=== PATIENT | male | born 1970 | race Caucasian/White ===

== ENCOUNTER → 2017-04-21 | Outpatient (CLI) | payer BC ==
--- NOTE | 2017-04-21 12:05 | PN ---
PROGRESS NOTE HISTORY: A 46-year-old male patient diagnosed having severe symptomatic obstructive sleep apnea with an AHI of 61. Currently on CPAP pressure of 10 cm of water. The patient is coming in for annual check. He is very compliant with CPAP therapy. He is wearing it every night without any interruption. He feels he needs the treatment, knowing that he feels much better while on treatment and he reports improvement in sleep quality and much more alertness and awakeness during the day. Based on the 30-day compliance data, the patient has been averaging 8.2 hours of CPAP use per night. He is using AirFit P 10 medium-size nose pillow. He has an AHI of less than 5 while on treatment. His leak factor is only at 6 L/minute. His weight has been essentially stable, he used to weigh 259 and he has lost approximately 6 pounds and is currently down to 253. No chills, no fever, no chest pain. No facial irritation or nose irritation. No aerophagia. SUBJECTIVE: BP is 128/78, pulse is 69, respirations 16, temperature 97.7, saturation 96% on room air. Weight is 253, height is 5 feet 8 inches, BMI 38.4. GENERAL APPEARANCE: Calm, comfortable. HEAD: Atraumatic, normocephalic. NECK: Short, Mallampati class IV. There is no goiter or neck masses. LUNGS: Clear to auscultation. HEART: Heart sounds are regular rate and rhythm. Normal S1, S2. No S3. No murmurs. ABDOMEN: Soft, nontender. No organomegaly. EXTREMITIES: No edema, cyanosis or clubbing. SKIN: There are no lesions, ulcerations, or warmth. ASSESSMENT: 1. Symptomatic severe obstructive sleep apnea. Apnea-hypopnea index is 61. The patient is currently on CPAP pressure of 10 and continues to be successfully treated. 2. Hypersomnia, recovered. 3. Obesity, body mass index of 38.4, with interval few pounds weight loss. PLAN: 1. No changes will be done on the CPAP machine. Continue CPAP with a pressure of 10 cm of water. 2. Renew supplies. 3. Encourage further weight loss. 4. Compliance data was reviewed. 5. See me back in a year's time or earlier if needed. MMODL / IJN: [id number] /
== END | disposition home or self-care (01) ==
LOC: SLEEP 10:05
PROVIDERS: ATTEND Internal Medicine Critical Care Medicine
DX: G47.33 Obstructive sleep apnea (adult) (pediatric) (principal); E66.9 Obesity, unspecified; Z99.89 Dependence on other enabling machines and devices; Z68.38 Body mass index [BMI] 38.0-38.9, adult

== ENCOUNTER → 2018-05-18 | Outpatient (CLI) | payer BC ==
--- NOTE | 2018-05-18 17:07 | PN ---
PROGRESS NOTE This is an annual check for a 47-year-old male patient diagnosed having a severe obstructive sleep apnea. The patient had an AHI of 61. Patient was treated for a CPAP pressure of 10 cm of water. He is using an AirFit P10 nose mask. On today's evaluation, he is doing great. He is still benefiting from the treatment. His weight is stable and he has gained only 2 pounds over the past 1 year. His compliance data shows the patient is averaging around 8.3 hours of CPAP use per night. Leak factor 5 L/minute. His AHI while on treatment is down to 5.2. His CPAP use for more than 4 hours 100%. His only complaint that the nose pillow itself was somewhat loose and at times is coming off inadvertently and he is exploring other nose masks. For the most part, he is doing well. He is waking up refreshed and alert during the day. No nocturnal chest pain, shortness of breath, chest pain or palpitations. [place] score is down to 1. REVIEW OF SYSTEMS: 12-point review of system was done. Positive findings are mentioned above in history of present illness. PHYSICAL EXAMINATION: BP is 118/83, pulse 80, respirations 16, temperature 97.1, saturation 94% on room air. Weight is 255, height is 5 feet 8 inches. GENERAL APPEARANCE: Calm, comfortable, obese. Head is atraumatic, normocephalic. NECK: Supple. No JVD. No goiter or neck masses. Mallampati class IV. LUNGS: Clear to auscultation. HEART: Sounds regular rate and rhythm. Normal S1, S2. No S3. No murmurs. ABDOMEN: Soft, nontender. No organomegaly. EXTREMITIES: No edema. No cyanosis or clubbing. IMPRESSION: 1. Severe symptomatic obstructive sleep apnea with an AHI of 61. The patient currently on CPAP pressure of 10 cm of water. 2. Hypersomnia, recovered. 3. Obesity with a stable body weight. Current body weight is at 255 with a BMI of 38.7. PLAN: 1. We explored different masks. I was able to fit this patient to a medium-sized Brevida nose pillow which worked very fine for him and he is willing to make the switch to a medium-sized reviewed nose pillow. 2. Encourage weight loss. 3. Increase the CPAP pressure of 11 cm of water knowing that the patient's AHI is just above 5. Would like to bring his AHI less than 5 while on treatment. The patient will see me back in 1 years time in followup. His treatment is successful for now. MMNANCIEL / IJN: [id number] /
== END ==
LOC: SLEEP 14:30
PROVIDERS: ATTEND Internal Medicine Critical Care Medicine
DX: G47.33 Obstructive sleep apnea (adult) (pediatric) (principal); E66.9 Obesity, unspecified; Z99.89 Dependence on other enabling machines and devices

== ENCOUNTER 2018-11-25 15:18 | Emergency (ER) | payer BC ==
[2018-11-25 15:22] VITALS: TEMP 98.4
[2018-11-25] MEDS ORDERED: IPRATROPIUM-ALBUTEROL 3 ML NEB INHALATION STA (15:27)
[2018-11-25] MEDS ORDERED: SODIUM CHLORIDE 0.9% 1,000 ML IV STA ×2 (15:27→17:00)
--- NOTE | 2018-11-25 15:28 | ED ---
SOB HPI - General Chief Complaint: Shortness of Breath Stated Complaint: SOB Time Seen by Provider: 11/25/18 15:23 Source: patient, RN notes reviewed, old records reviewed Mode of arrival: wheelchair Limitations: no limitations - History of Present Illness Initial Comments: This is a 48-year-old male the ER for evaluation today. Patient stated presents for evaluation regarding shortness of breath he does have shortness of breath episodes of dizziness lightheadedness sweating prior to arrival. No recent travel history no sick contacts patient has no medical history takes no medications no recent fever cough or congestion, patient denies drug or alcohol abuse. Symptoms happen twice today whatsoever in the morning and once again or shopping tonight. Patient currently feeling improved. Feels lightheaded and dizzy like he may pass out MD Complaint: shortness of breath, anxiety -: hour(s) Radiation: other (No pain) Severity: moderate (Dizziness lightheadedness shortness of breath) Severity scale (1-10): 3 Consistency: intermittent Improves With: oxygen, rest Worsens With: exertion, movement Associated Symptoms: palpitations, diaphoresis Treatments Prior to Arrival: none - Related Data Home Medications Medication Instructions Recorded Confirmed No Known Home Medications 11/25/18 11/25/18 Allergies Allergy/AdvReac Type Severity Reaction Status Date / Time codeine Allergy Nausea & Verified 11/25/18 15:57 Vomiting Review of Systems ROS Statement: Those systems with pertinent positive or pertinent negative responses have been documented in the HPI. ROS Other: All systems not noted in ROS Statement are negative. Past Medical History Additional Past Medical History / Comment(s): diverticulitis, neck and back hernitated disc History of Any Multi-Drug Resistant Organisms: None Reported Past Surgical History: Bowel Resection Past Psychological History: No Psychological Hx Reported Smoking Status: Never smoker Past Alcohol Use History: Occasional Past Drug Use History: None Reported General Exam Limitations: no limitations General appearance: alert, in no apparent distress Head exam: Present: atraumatic, normocephalic, normal inspection Eye exam: Present: normal appearance, PERRL, EOMI. Absent: scleral icterus, conjunctival injection, periorbital swelling ENT exam: Present: normal exam, mucous membranes moist Neck exam: Present: normal inspection. Absent: tenderness, meningismus, lymphadenopathy Respiratory exam: Present: normal lung sounds bilaterally. Absent: respiratory distress, wheezes, rales, rhonchi, stridor Cardiovascular Exam: Present: regular rate, normal rhythm, normal heart sounds. Absent: systolic murmur, diastolic murmur, rubs, gallop, clicks GI/Abdominal exam: Present: soft, normal bowel sounds. Absent: distended, tenderness, guarding, rebound, rigid Extremities exam: Present: normal inspection, full ROM, normal capillary refill. Absent: tenderness, pedal edema, joint swelling, calf tenderness Back exam: Present: normal inspection Neurological exam: Present: alert, oriented X3, CN II-XII intact Psychiatric exam: Present: normal affect, normal mood Skin exam: Present: warm, dry, intact, normal color. Absent: rash Course Vital Signs 11/25/18 11/25/18 11/25/18 15: 15:43 15:52 Temperature 98.4 F Pulse Rate 60 71 72 Respiratory 18 Rate Blood Pressure 172/104 O2 Sat by Pulse 97 Oximetry 11/25/18 11/25/18 16:00 17:00 Temperature Pulse Rate 66 67 Respiratory 18 18 Rate Blood Pressure 147/84 142/80 O2 Sat by Pulse 98 98 Oximetry - Reevaluation(s) Reevaluation #1: 11/25/18 16:44 Medical records reviewed Reevaluation #2: 11/25/18 19:49 Patient remains asymptomatic throughout ER stay no chest pain or shortness of breath no other complaints. Medical Decision Making - Medical Decision Making 48 male the ER with nonspecific lightheadedness dizziness episode of clamminess, symptoms are already improved resolved now. Troponin negative 2 CT is negative. Patient can be discharged home - Lab Data Result diagrams: 11/25/18 15:45 11/25/18 15:45 Lab Results 11/25/18 11/25/18 11/25/18 Range/Units 15:45 15:45 15:45 WBC 8.5 (3.8-10.6) k/uL RBC 5.27 (4.30-5.90) m/uL Hgb 15.6 (13.0-17.5) gm/dL Hct 45.1 (39.0-53.0) % MCV 85.6 (80.0-100.0) fL MCH 29.6 (25.0-35.0) pg MCHC 34.6 (31.0-37.0) g/dL RDW 15.5 (11.5-15.5) % Plt Count 270 (150-450) k/uL Neutrophils % 65 % Lymphocytes % 25 % Monocytes % 5 % Eosinophils % 3 % Basophils % 1 % Neutrophils # 5.5 (1.3-7.7) k/uL Lymphocytes # 2.1 (1.0-4.8) k/uL Monocytes # 0.5 (0-1.0) k/uL Eosinophils # 0.3 (0-0.7) k/uL Basophils # 0.1 (0-0.2) k/uL PT 10.2 (9.0-12.0) sec INR 0.9 (<1.2) APTT 25.0 (22.0-30.0) sec D-Dimer 0.19 (<0.60) mg/L FEU Sodium 141 (137-145) mmol/L Potassium 4.2 (3.5-5.1) mmol/L Chloride 106 (98-107) mmol/L Carbon Dioxide 26 (22-30) mmol/L Anion Gap 9 mmol/L BUN 15 (9-20) mg/dL Creatinine 0.85 (0.66-1.25) mg/dL Est GFR (CKD-EPI)AfAm >90 (>60 ml/min/1.73 sqM) Est GFR (CKD-EPI)NonAf >90 (>60 ml/min/1.73 sqM) Glucose 95 (74-99) mg/dL Calcium 9.6 (8.4-10.2) mg/dL Magnesium 2.3 (1.6-2.3) mg/dL Total Bilirubin 0.8 (0.2-1.3) mg/dL AST 27 (17-59) U/L ALT 24 (21-72) U/L Alkaline Phosphatase 93 (38-126) U/L Troponin I (0.000-0.034) ng/mL NT-Pro-B Natriuret Pep pg/mL Total Protein 7.6 (6.3-8.2) g/dL Albumin 4.4 (3.5-5.0) g/dL 11/25/18 11/25/18 11/25/18 Range/Units 15:45 15:45 18:50 WBC (3.8-10.6) k/uL RBC (4.30-5.90) m/uL Hgb (13.0-17.5) gm/dL Hct (39.0-53.0) % MCV (80.0-100.0) fL MCH (25.0-35.0) pg MCHC (31.0-37.0) g/dL RDW (11.5-15.5) % Plt Count (150-450) k/uL Neutrophils % % Lymphocytes % % Monocytes % % Eosinophils % % Basophils % % Neutrophils # (1.3-7.7) k/uL Lymphocytes # (1.0-4.8) k/uL Monocytes # (0-1.0) k/uL Eosinophils # (0-0.7) k/uL Basophils # (0-0.2) k/uL PT (9.0-12.0) sec INR (<1.2) APTT (22.0-30.0) sec D-Dimer (<0.60) mg/L FEU Sodium (137-145) mmol/L Potassium (3.5-5.1) mmol/L Chloride (98-107) mmol/L Carbon Dioxide (22-30) mmol/L Anion Gap mmol/L BUN (9-20) mg/dL Creatinine (0.66-1.25) mg/dL Est GFR (CKD-EPI)AfAm (>60 ml/min/1.73 sqM) Est GFR (CKD-EPI)NonAf (>60 ml/min/1.73 sqM) Glucose (74-99) mg/dL Calcium (8.4-10.2) mg/dL Magnesium (1.6-2.3) mg/dL Total Bilirubin (0.2-1.3) mg/dL AST (17-59) U/L ALT (21-72) U/L Alkaline Phosphatase (38-126) U/L Troponin I <0.012 <0.012 (0.000-0.034) ng/mL NT-Pro-B Natriuret Pep 22 pg/mL Total Protein (6.3-8.2) g/dL Albumin (3.5-5.0) g/dL - EKG Data -: EKG Interpreted by Me (EKG shows sinus rhythm rate of 60, NJ 140, QRS 02, QTc 388) - Radiology Data Radiology results: report reviewed (CTA chest is negative for acute disease), image reviewed Disposition Clinical Impression: Dizziness, Lightheadedness Disposition: HOME SELF-CARE Condition: Good Instructions (If sedation given, give patient instructions): Near Syncope (ED), Lightheadedness (ED), Dizziness (ED) Is patient prescribed a controlled substance at d/c from ED?: No Referrals: Anish Archuleta DO [Primary Care Provider] - 1-2 days
[2018-11-25 15:57] LABS: Basophils # (A) 0.1 k/uL (0-0.2); Basophils % (A) 1 %; Eosinophils # (A) 0.3 k/uL (0-0.7); Eosinophils % (A) 3 %; HCT 45.1 % (39.0-53.0); HGB 15.6 gm/dL (13.0-17.5); Lymphocytes # (A) 2.1 k/uL (1.0-4.8); Lymphocytes % (A) 25 %; MCH 29.6 pg (25.0-35.0); MCHC 34.6 g/dL (31.0-37.0); MCV 85.6 fL (80.0-100.0); Monocytes # (A) 0.5 k/uL (0-1.0); Monocytes % (A) 5 %; Neutrophils # (A) 5.5 k/uL (1.3-7.7); Neutrophils % (A) 65 %; Platelet Count 270 k/uL (150-450); RBC 5.27 m/uL (4.30-5.90); RDW 15.5 % (11.5-15.5); WBC 8.5 k/uL (3.8-10.6)
[2018-11-25 16:10] LABS: ALT 24 U/L (21-72); AST 27 U/L (17-59); African American GFR (CKD) >90 (>60 ml/min/1.73 sqM); Albumin 4.4 g/dL (3.5-5.0); Alkaline Phosphatase 93 U/L (38-126); Anion Gap 9 mmol/L; Blood Urea Nitrogen 15 mg/dL (9-20); Calcium 9.6 mg/dL (8.4-10.2); Carbon Dioxide 26 mmol/L (22-30); Chloride 106 mmol/L (98-107); Glucose 95 mg/dL (74-99); Magnesium 2.3 mg/dL (1.6-2.3); Potassium 4.2 mmol/L (3.5-5.1); Sodium 141 mmol/L (137-145); Total Bilirubin 0.8 mg/dL (0.2-1.3); Total Protein 7.6 g/dL (6.3-8.2)
[2018-11-25 16:11] LABS: D-Dimer 0.19 mg/L FEU (<0.60); INR 0.9 (<1.2); Prothrombin Time 10.2 sec (9.0-12.0)
--- NOTE | 2018-11-25 16:55 | XR ---
EXAMINATION TYPE: XR chest 2V DATE OF EXAM: 11/25/2018 COMPARISON: NONE HISTORY: Short of breath TECHNIQUE: Frontal and lateral views of the chest are obtained. FINDINGS: Heart and mediastinum are normal. Lungs are clear of infiltrate. There are chest leads. Co stophrenic angles are clear. There is spurring in the thoracic spine. IMPRESSION: No active cardiopulmonary disease.
--- NOTE | 2018-11-25 17:33 | CT ---
EXAMINATION TYPE: CT angio chest DATE OF EXAM: 11/25/2018 5:20 PM COMPARISON: None HISTORY: SOB, dizziness and near syncope CT DLP: 604.9 mGycm Automated exposure control for dose reduction was used. CONTRAST: CTA scan of the thorax is performed with IV Contrast, patient injected with 80 mL of Isovue 370, pulm onary embolism protocol. . There are 3-D post processed images. FINDINGS: The lungs are clear of infiltrate. There is no evidence of a pulmonary mass. There is no pleural effu esau. There is no mediastinal adenopathy. There are no hilar masses. Heart size is fairly normal. The re is no pericardial effusion. I see no filling defects in the pulmonary arteries. Thoracic aorta is intact without evidence of aneurysm or dissection. There is some spurring in the th oracic spine. The ribs appear intact. IMPRESSION: NO EVIDENCE OF PULMONARY EMBOLISM. NEGATIVE EXAM.
[2018-11-25 19:52] VITALS: BP 136/92; PULSE 60; RESP 20
== END 2018-11-25 19:55 | disposition home or self-care (01) ==
LOC: EC 15:18
DX: R42 Dizziness and giddiness (principal); R23.1 Pallor; R06.02 Shortness of breath; F41.9 Anxiety disorder, unspecified; R61 Generalized hyperhidrosis; R00.2 Palpitations; Z88.5 Allergy status to narcotic agent
CPT/HCPCS: 36415; 94640; 93005; 85379; 83880; 80053; 83735; 84484; 85025; 85610; 85730; 71046; 71275; 99285; 96360; 96361 ×3; Q9967

== ENCOUNTER → 2019-06-21 | Outpatient (CLI) | payer BC ==
--- NOTE | 2019-06-22 09:25 | PN ---
PROGRESS NOTE A 48-year-old male patient coming in for a CPAP compliancy check. The patient was diagnosed as having severe obstructive sleep apnea approximately a year ago and the patient has been on CPAP at a pressure of 11 cm of water. On today's evaluation, the patient is doing well. He is using an AirFit P10 nose pillow. Treatment has been successful. No major hypersomnia or sleepiness during the day. Based on the compliance data, the patient has been averaging around 8.6 hours of CPAP use per night and CPAP use for more than 4 hours is above 90%. His leak is at 46 per minute and the patient's AHI is down to 7. His weight has been stable. No other new complaints otherwise. No new onset of medical problems or comorbidities. PHYSICAL EXAMINATION: BP is 135/88, pulse 70, respirations 16, temperature 97.5, saturation 94% on room air, height is 5 feet 8 inches, weight is 259, BMI 38.6. GENERAL APPEARANCE: Calm, comfortable. HEAD: Atraumatic, normocephalic. NECK: Supple. There is no JVD. No goiter or neck mass. LUNGS: Clear to auscultation. HEART: Heart sounds are regular rate and rhythm. Normal S1, S2. No S3, S4. No murmurs. ABDOMEN: Soft, nontender. No organomegaly. EXTREMITIES: No edema. No cyanosis or clubbing. NEUROLOGIC: Awake and alert. There are no focal neurological deficits. PSYCHIATRIC: There is no anxiety or depression. SKIN: Negative for any wounds or ulcerations. IMPRESSION: 1. Severe symptomatic obstructive sleep apnea with an AHI of 61, currently on CPAP with a pressure of 11 cm of water. Treatment continues to be successful. 2. Obesity with a BMI of 38.6. 3. Hypersomnia, recovered. PLAN: 1. Continue CPAP therapy at the same level of pressure. 2. On today's evaluation, I used an AirFit P30i nose pillow, which the patient was able to utilize and a prescription was given. 3. Encourage weight loss. 4. See me back in a year's time and followup earlier if needed. Treatment successful for now. MMODL / IJN: [id number] /
== END | disposition home or self-care (01) ==
LOC: SLEEP 16:01
PROVIDERS: ATTEND Internal Medicine Critical Care Medicine
DX: G47.33 Obstructive sleep apnea (adult) (pediatric) (principal); Z53.9 Procedure and treatment not carried out, unspecified reason

== ENCOUNTER 2022-11-11 09:07 | Day surgery (SDC) | payer BC ==
[~2022-11-11 09:07] MED LIST: LACTATED RINGERS 1,000 ML IV SCH
[2022-11-11] MEDS ORDERED: PROPOFOL 10 MG/ML 20 ML VIAL IV ONE (09:33)
[2022-11-11 09:34] VITALS: TEMP 98
--- NOTE | 2022-11-11 09:35 | P.GSHP ---
History of Present Illness H&P Date: 11/11/22 Chief Complaint: Colon cancer screening 51-year-old male here for colonoscopy. No bowel complaints. History of previous sigmoid resection for diverticulitis. No family history of colon cancer. Past Medical History Past Medical History: Hyperlipidemia, Hypertension Additional Past Medical History / Comment(s): diverticulitis, neck and back hernitated disc History of Any Multi-Drug Resistant Organisms: None Reported Past Surgical History: Bowel Resection Past Anesthesia/Blood Transfusion Reactions: No Reported Reaction Smoking Status: Never smoker Medications and Allergies Home Medications Medication Instructions Recorded Confirmed Type Losartan Potassium [Cozaar] 25 mg PO HS 11/04/22 11/11/22 History Rosuvastatin Calcium 10 mg PO HS 11/04/22 11/11/22 History Allergies Allergy/AdvReac Type Severity Reaction Status Date / Time codeine Allergy Nausea & Verified 11/11/22 09:24 Vomiting Surgical - Exam Vital Signs Temp Pulse Resp BP Pulse Ox 98.0 F 77 16 128/77 95 11/11/22 09:33 11/11/22 09:33 11/11/22 09:33 11/11/22 09:33 11/11/22 09:33 Physical exam: General: Well-developed, well-nourished HEENT: Normocephalic, sclerae nonicteric Abdomen: Nontender, nondistended Extremities: No edema Neuro: Alert and oriented Assessment and Plan (1) Colon cancer screening Narrative/Plan: Will proceed with colonoscopy at this time. Current Visit: Yes Status: Acute Code(s): Z12.11 - ENCOUNTER FOR SCREENING FOR MALIGNANT NEOPLASM OF COLON SNOMED Code(s): 572317770
--- NOTE | 2022-11-11 09:43 | P.PCN ---
Date of Procedure: 11/11/22 Procedure(s) Performed: PREOPERATIVE DIAGNOSIS: Colon cancer screening POSTOPERATIVE DIAGNOSIS: Normal exam PROCEDURE: Colonoscopy ANESTHESIA: MAC SURGEON: Sherif Samuels M.D. SPECIMENS: None ENDOSCOPIC PROCEDURE: The patient was placed on the endoscopy table in the left decubitus position. The Olympus colonoscope was inserted into the anus and passed under direct visualization to the base of the cecum. The appendiceal orifice was visualized. From that point the scope was slowly withdrawn inspecti ng all surfaces carefully. There were no neoplastic inflammatory or polypoid lesions throughout the cecum, ascending, transverse, descending and rectum. There was no visible diverticulosis noted. The patient's previous colorectal rectal anastomosis was widely patent. Digital rectal examination was normal. The patient was taken to the recovery room in stable condition per anesthesia guidelines. RECOMMENDATIONS: Resume diet. Repeat colonoscopy 10 years.
[2022-11-11 10:09] VITALS: BP 111/62; PULSE 68; RESP 18
== END 2022-11-11 10:27 | disposition home or self-care (01) ==
LOC: ORWHC2ENDO 09:07
PROVIDERS: ATTEND Surgery
DX: Z12.11 Encounter for screening for malignant neoplasm of colon (principal); I10 Essential (primary) hypertension; E78.5 Hyperlipidemia, unspecified; Z79.899 Other long term (current) drug therapy; Z88.5 Allergy status to narcotic agent
CPT/HCPCS: 45378; J2704